=== PATIENT | male | born 1945 | race Caucasian/White ===

== ENCOUNTER 2021-11-28 23:02 | Inpatient (IN) | payer OTHER, MEDICARE, SELFPAY ==
[2021-11-28 23:03] VITALS: BP 119/77; PULSE 106; RESP 14; TEMP 36.8; O2SAT 92; BMI 26.6
--- NOTE | 2021-11-28 23:09 | ECG_ITS ---
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 Measurements Intervals [place] Rate: 105 P: 62 TN: 257 QRS: -39 QRSD: 150 T: 0 QT: 318 QTc: 421 Interpretive Statements SINUS TACHYCARDIA WITH FIRST DEGREE AV BLOCK WITH FREQUENT VENTRICULAR PREMATURE COMPLEXES LEFT AXIS DEVIATION [QRS AXIS < -30] RIGHT BUNDLE BRANCH BLOCK [120+ ms QRS DURATION, UPRIGHT V1, 40+ ms S IN I/aVL/V4/V5/V6] Compared to ECG 04/26/2017 12:52:22 Left-axis deviation now present Sinus rhythm no longer present Electronically Signed On 11-29-2021 15:01:14 CDT by Yodit Stanley M.D. [email or web address].[employer]/store/NU/[id number] f
--- NOTE | 2021-11-28 23:10 | XRR_ITS ---
PROCEDURE INFORMATION: Exam: XR Chest Exam date and time: 11/28/2021 11:12 PM Age: 76 years old Clinical indication: Patient HX: General weakness. TECHNIQUE: Imaging protocol: XR of the chest. Views: 1 view. COMPARISON: CR Chest 1 [place] [id number] 04/26/2017 1:13 PM FINDINGS: Lungs: There are some increased linear opacity seen in the right upper lobe adjacent to the minor fissure and some linear opacities are seen in the lung bases, findings that likely represents atelectasis. A patchy bilateral pneumonitis cannot be excluded. Pleural spaces: Patchy opacities are seen in the left costophrenic recess possibly represent a small left pleural effusion versus pleural thickening. Heart/Mediastinum: Unremarkable. No cardiomegaly. Bones/joints: Unremarkable. XR/XR chest 1V portable [id number] IMPRESSION: 1. Linear opacities present in the right upper lobe adjacent to the minor fissure and in the lung bases bilaterally may represent atelectasis although a patchy bilateral pneumonitis cannot be entirely excluded. 2. Blunting the left costophrenic recess possibly secondary to a small left pleural effusion versus pleural scarring.
--- NOTE | 2021-11-28 23:10 | CTR_ITS ---
PROCEDURE INFORMATION: Exam: CT Head Without Contrast Exam date and time: 11/28/2021 11:22 PM Age: 76 years old Clinical indication: Patient HX: C/O dizziness with nausea and worsening weakness since last Wednesday. ; Additional info: Dizzy TECHNIQUE: Imaging protocol: Computed tomography of the head without contrast. Radiation optimization: All CT scans at this facility use at least one of these dose optimization techniques: automated exposure control; mA and/or kV adjustment per patient size (includes targeted exams where dose is matched to clinical indication); or iterative reconstruction. COMPARISON: No relevant prior studies available. RADIATION DOSE METRICS: Total DLP (mGy-cm): 991.87 FINDINGS: Brain: Normal. No hemorrhage. Unremarkable white matter. No mass effect. Cerebral ventricles: No ventriculomegaly. Paranasal sinuses: There is virtual opacification of the maxillary sinuses bilaterally with mucosal thickening and fluid seen within the frontal, ethmoidal and sphenoidal sinuses bilaterally. The patient is status post bilateral maxillary medial wall antrectomies. Mastoid air cells: Visualized mastoid air cells are well aerated. Bones/joints: Unremarkable. No acute fracture. Soft tissues: Unremarkable. CT/CT head wo con* [id number] IMPRESSION: There are no acute intracranial findings.
--- NOTE | 2021-11-28 23:16 | ED_ITS ---
HPI - Dizziness General: Chief Complaint: Dizziness Stated Complaint: DIZZY Time Seen by Provider: 11/28/21 23:12 Source: patient and EMS Mode of arrival: EMS Limitations: no limitations History of Present Illness: HPI Narrative: 76-year-old male states he has had extreme dizziness over the last 2 days with a getting much worse today. He states that its been going on this morning since 10 AM states that with any movement he gets very dizzy and is having a hard time walking. He states that it does seem to be improved with rest. He had some generalized weakness as well EKG by EMS showed frequent PVCs. He denies any headache denies any focal deficits. Denies any vomiting has had some nausea. Patient states has had some low-grade fevers and a cough as well. Associated symptoms: Denies chest pain, chills, nausea or vomiting Review of Systems Const: Denies: fever(s), chills, body aches or change in appetite Eyes: Denies: blurry vision or eye discomfort ENMT: Denies: throat pain or dental pain Card: Denies: chest pain Resp: Denies: dyspnea GI: Denies: abdominal pain, nausea, vomiting or diarrhea : Denies: dysuria Musc: Denies: neck pain or back pain Skin/Breast: Denies: rash Neuro: Reports: dizziness Psych: Denies: depression Miguel/Lymph: Denies: easy bruising All/Imm: Denies: urticaria PFSH ED PFSH: Medical History No pertinent past medical history Social History (Updated 11/28/21 @ 23:17 by Angeli Walker MD) Substance/Drug Use: never Physical Exam Const: COMMON NORMALS: patient oriented x3 GENERAL APPEARANCE: ill appearing HENMT: COMMON NORMALS: normocephalic and atraumatic HEAD & SCALP: normocephalic and atraumatic Eye: COMMON NORMALS: Equal, round and reactive pupils present and EOMs intact bilaterally PUPIL: Yes Equal, round and reactive pupils present Neck/C-Spine: COMMON NORMALS: full ROM and supple Chest: COMMONS NORMALS: normal inspection of the chest and normal palpation of entire chest wall Resp: COMMON NORMALS: No retractions and No use of accessory muscles AUSCULTATION: rales Cardio: COMMON NORMALS: regular rate, regular rhythm and No murmurs present (Cardio) RATE: regular rate RHYTHM: regular rhythm GI: COMMON NORMALS: Normal to inspection, nondistended, normoactive bowel sounds present, Soft to palpation, non-tender and no masses PALPATION: Yes Soft to palpation Extremity: COMMON NORMALS: normal to inspection and full ROM Neuro: COMMON NORMALS: patient oriented x3, moves all extremities and no focal motor deficits Psych: COMMON NORMALS: mental status grossly normal, Normal thought process present and cooperative THOUGHT PROCESS: Normal thought process present Skin: COMMON NORMALS: no rashes or lesions noted and no wounds GENERAL SKIN EXAM: no rashes or lesions noted Course Vital Signs: Vital signs: Vital Signs Temperature 99.7 F H 11/29/21 01:07 Pulse Rate 95 11/29/21 01:07 Respiratory Rate 19 H 11/29/21 01:07 Blood Pressure 120/83 11/29/21 01:07 Pulse Oximetry 92 11/28/21 23:03 [facility] - Dizziness Medical Decision Making Patient presents with cough and vertigo. He has no signs of acute stroke his vertigo has been going on for couple days he is requiring oxygen currently is on 2 L does have pneumonia on x-ray start IV antibiotics spoke to hospitalist and will admit. Lab Data : 11/28/21 21:56 11/28/21 21:56 Radiology Impressions Chest X-Ray 11/28/21 23:10 IMPRESSION: 1. Linear opacities present in the right upper lobe adjacent to the minor fissure and in the lung bases bilaterally may represent atelectasis although a patchy bilateral pneumonitis cannot be entirely excluded. 2. Blunting the left costophrenic recess possibly secondary to a small left pleural effusion versus pleural scarring. Head CT 11/28/21 23:10 IMPRESSION: There are no acute intracranial findings. Laboratory Results WBC 11.2 10^3/uL (4.0-10.0) H 11/28/21 21:56 RBC 3.93 10^6/uL (4.1-5.3) L 11/28/21 21:56 Hgb 12.7 g/dL (11.7-16.6) 11/28/21 21:56 Hct 38.4 % (42.0-52.0) L 11/28/21 21:56 MCV 97.7 fl (80-94) H 11/28/21 21:56 MCH 32.3 pg (28.0-34.0) 11/28/21 21:56 MCHC 33.1 g/dL (30.0-36.0) 11/28/21 21:56 RDW 13.1 % (12.1-15.1) 11/28/21 21:56 Plt Count 169 10^3/cmm (130-400) 11/28/21 21:56 MPV 11.5 fL (7.4-10.4) H 11/28/21 21:56 Neut % (Auto) 84.3 % 11/28/21 21:56 Lymph % (Auto) 8.0 % 11/28/21 21:56 Rush % (Auto) 6.7 % 11/28/21 21:56 Eos % (Auto) 0.3 % 11/28/21 21:56 Baso % (Auto) 0.2 % 11/28/21 21:56 Neut # (Auto) 9.42 10^3/uL (1.8-7.7) H 11/28/21 21:56 Lymph # (Auto) 0.9 10^3/uL (0.8-4.8) 11/28/21 21:56 Rush # (Auto) 0.8 10^3/uL (0.2-0.9) 11/28/21 21:56 Eos # (Auto) 0.0 10^3/uL (0.0-0.8) 11/28/21 21:56 Baso # (Auto) 0.0 10^3/uL (0.0-0.1) 11/28/21 21:56 Nucleated RBC % (auto) 0 % 11/28/21 21:56 Nucleated RBCs # 0.0 /100WBC 11/28/21 21:56 Sodium 134 mmol/L (136-145) L 11/28/21 21:56 Potassium 3.6 mmol/L (3.5-5.1) 11/28/21 21:56 Chloride 100 mmol/L (98-107) 11/28/21 21:56 Carbon Dioxide 18 mmol/L (22-29) L 11/28/21 21:56 Anion Gap 19.6 (5-19) H 11/28/21 21:56 BUN 27 mg/dL (8-23) H 11/28/21 21:56 Creatinine 1.4 mg/dL (0.7-1.2) H 11/28/21 21:56 GFR Calculation Not Reportable 11/28/21 21:56 Glucose 113 mg/dL (65-115) 11/28/21 21:56 Calculated Osmolality 284 mOsm/kg (285-295) L 11/28/21 21:56 Calcium 9.1 mg/dL (8.5-10.5) 11/28/21 21:56 Total Bilirubin 0.7 mg/dL (0.15-1.2) 11/28/21 21:56 AST 12 U/L (0-40) 11/28/21 21:56 ALT 8 U/L (0-41) 11/28/21 21:56 Alkaline Phosphatase 58 IU/L (40-130) 11/28/21 21:56 Troponin T Baseline 32 ng/L (0-15) H 11/28/21 21:56 Total Protein 6.5 g/dL (6.6-8.7) L 11/28/21 21:56 Albumin 4.1 g/dL (3.5-5.2) 11/28/21 21:56 Globulin 2.4 g/dL (1.3-4.6) 11/28/21 21:56 Urine Color Yellow (Yellow) 11/29/21 00:56 Urine Appearance Clear (CLEAR) 11/29/21 00:56 Urine pH 5 (5-7) 11/29/21 00:56 Ur Specific [place] 1.020 (1.005-1.030) 11/29/21 00:56 Urine Protein Neg (Negative) 11/29/21 00:56 Urine Glucose (UA) Norm (Normal) 11/29/21 00:56 Urine Ketones 1+ (Negative) H 11/29/21 00:56 Urine Blood 2+ (Negative) H 11/29/21 00:56 Urine Nitrate Negative (Negative) 11/29/21 00:56 Urine Bilirubin Neg (Negative) 11/29/21 00:56 Urine Urobilinogen Norm mg/dL (Negative) 11/29/21 00:56 Ur Leukocyte Esterase Negative (Negative) 11/29/21 00:56 Urine RBC 25-40 /hpf (0-2) H 11/29/21 00:56 Urine WBC 0-4 /hpf (0-5) H 11/29/21 00:56 Ur Squamous Epith Cells 0-4 /hpf (0-5) H 11/29/21 00:56 Amorphous Sediment 1+ /hpf 11/29/21 00:56 Urine Bacteria 2+ /hpf (NONE) H 11/29/21 00:56 Hyaline Casts 0-4 /lpf H 11/29/21 00:56 Urine Mucus 2+ /hpf 11/29/21 00:56 Influenza Type A Ag Negative (Negative) 11/29/21 00:42 Influenza Type B Ag Negative (Negative) 11/29/21 00:42 EKG Data EKG 1: I personally reviewed and interpreted this EKG as follows: EKG interpretation date: 11/28/21 EKG interpretation time: 23:12 Interpretation: sinus tach hr [address] elevation qrs 150 qtc 379 EKG 2: I personally reviewed and interpreted this EKG as follows: EKG interpretation date: 11/29/21 EKG interpretation time: 01:01 Interpretation: sinus tach hr [address] or t wave abnormalities qrs 138 qtc 375 Critical Care Time Critical Care Time: Critical Care Time: Yes Total Critical Care Time: 40 Attestation: The high probability of a clinically significant, sudden or life threatening deterioration of the patient's pul system(s) required my full and direct attention, intervention and personal management. The critical care time is as shown. This time is in addition to time spent performing any reported procedures but includes the following: [x] Data and vital sign review and interpretation [x] Patient assessment, examination and intervention [x] Documentation [x] Medication orders and management Discharge Plan Discharge Patient Disposition: Admitted As Inpatient Clinical Impression: Pneumonia, Dizziness, Acute respiratory failure with hypoxia Coding Level of Care Code ED Vest Finisher for Chg Fwd Exam Comprehensive
[2021-11-28 23:17] LABS: Basophils % 0.2 %; Eosinophils % 0.3 %; Hematocrit 38.4 % (42.0-52.0); Hemoglobin 12.7 g/dL (11.7-16.6); Lymphocytes # 0.9 10^3/uL (0.8-4.8); Mean Corpuscular HGB Conc 33.1 g/dL (30.0-36.0); Mean Corpuscular Hemoglobin 32.3 pg (28.0-34.0); Mean Corpuscular Volume 97.7 fl (80-94); Mean Platelet Volume 11.5 fL (7.4-10.4); Monocytes # 0.8 10^3/uL (0.2-0.9); Monocytes % 6.7 %; Neutrophils # 9.42 10^3/uL (1.8-7.7); Neutrophils % 84.3 %; Nucleated Red Blood Cells % 0 %; Platelet Count 169 10^3/cmm (130-400); Red Blood Count 3.93 10^6/uL (4.1-5.3); Red Cell Distribution Width 13.1 % (12.1-15.1); White Blood Count 11.2 10^3/uL (4.0-10.0)
[2021-11-28 23:40] LABS: Troponin(5th) Baseline 32 ng/L (0-15)
[2021-11-28 23:41] LABS: Alanine Aminotransferase 8 U/L (0-41); Albumin Level 4.1 g/dL (3.5-5.2); Alkaline Phosphatase 58 IU/L (40-130); Anion Gap 19.6 (5-19); Aspartate Amino Transferase 12 U/L (0-40); Blood Urea Nitrogen 27 mg/dL (8-23); Calcium 9.1 mg/dL (8.5-10.5); Carbon Dioxide 18 mmol/L (22-29); Chloride 100 mmol/L (98-107); Globulin 2.4 g/dL (1.3-4.6); Glucose 113 mg/dL (65-115); Osmolality Calculated 284 mOsm/kg (285-295); Potassium 3.6 mmol/L (3.5-5.1); Sodium 134 mmol/L (136-145); Total Bilirubin 0.7 mg/dL (0.15-1.2); Total Protein 6.5 g/dL (6.6-8.7)
[2021-11-29] VITALS (17 sets, daily range): BP systolic 86–120; BP diastolic 49–83; PULSE 43–113; RESP 16–36; TEMP 36.7–37.9; O2SAT 90–95; BMI 27.4
[2021-11-29] MEDS: meclizine 25 mg tablet 50 MG PO (01:06)
--- NOTE | 2021-11-29 01:09 | ECG_ITS ---
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 Measurements Intervals [place] Rate: 103 P: 37 [place]: 266 QRS: -43 QRSD: 138 T: 0 QT: 315 QTc: 413 Interpretive Statements SINUS TACHYCARDIA WITH FIRST DEGREE AV BLOCK WITH OCCASIONAL VENTRICULAR PREMATURE COMPLEXES LEFT AXIS DEVIATION [QRS AXIS < -30] RIGHT BUNDLE BRANCH BLOCK [120+ ms QRS DURATION, UPRIGHT V1, 40+ ms S IN I/aVL/V4/V5/V6] WARNING: DATA QUALITY MAY AFFECT INTERPRETATION Compared to ECG 04/26/2017 12:52:22 Ventricular premature complex(es) now present Left-axis deviation now present Sinus rhythm no longer present Electronically Signed On 11-29-2021 15:13:04 CDT by Yodit Stanley M.D. [email or web address]/[id number]
[2021-11-29 01:20] LABS: Add Urine Microscopic? YES; Bilirubin Urine Neg (Negative); Blood Urine 2+ (Negative); Glucose Urine UA Norm (Normal); Ketones Urine 1+ (Negative); Leukocyte Esterase Urine Negative (Negative); Nitrate Urine Negative (Negative); Protein Urine Neg (Negative); Urine Appearance Clear (CLEAR); Urine Color Yellow (Yellow); Urobilinogen Urine Norm (Negative); pH Urine 5 (5-7)
[2021-11-29 01:22] LABS: Add Urine Culture? Yes; Amorphous Sediment Urine 1+ /hpf; Bacteria Urine 2+ /hpf; Hyaline Casts Urine 0-4 /lpf; Mucus Urine 2+ /hpf; RBC Urine 25-40 /hpf (0-2); Squamous Epithelial Cell Urine 0-4 /hpf (0-5); WBC Urine 0-4 /hpf (0-5)
[2021-11-29 01:23] LABS: Influenza A by IFA Negative (Negative); Influenza B by IFA Negative (Negative)
[2021-11-29] MEDS: acetaminophen 500 mg Tablet 1000 MG PO (01:28)
[2021-11-29] MEDS: cefTRIAXone 1,000 MG in sodium chloride 0.9% (plus) 50 ML 100 MG IV (01:30)
--- NOTE | 2021-11-29 01:48 | PM.HP ---
Providers/Chief Complaint Chief Complaint: DIZZY History of Present Illness The patient is a 76-year-old male who presented to [facility] nausea and dizziness. He states he started feeling unwell approximate 5 days prior to hospitalization. He admits to onset of low-grade fever, rigors, nausea, cough however upon further questioning he states that his cough is chronic however it is now productive of yellow sputum as well as diarrhea into his ostomy. He denies vomiting, wheeze, abdominal pain, myalgia, chest pain. He denies referral edema. In the emergency department the patient was found to be hypoxemic. He presents for further evaluation Review of Systems General: Reports: 10 or more systems reviewed and unremarkable except in HPI and below Medications/Allergies Allergies Allergy/AdvReac Type Severity Reaction Status Date / Time codeine Allergy ADR-Halluci Verified 11/28/21 23:13 nating morphine Allergy ADR-Halluci Verified 11/28/21 23:13 nating PFSH Acute PFSH: Medical History No pertinent past medical history Social History Substance/Drug Use: never Vitals/I&O/Wt Last Vital Signs Temp 99.7 F H 11/29/21 01:07 Pulse 95 11/29/21 01:07 Resp 19 H 11/29/21 01:07 BP 120/83 11/29/21 01:07 Pulse Ox 92 11/28/21 23:03 Weight last 48 hrs Weight 79.379 kg Physical Exam Narrative: General: -Alert -No acute distress -No dyspnea -No tachypnea Head: -Atraumatic -Normocephalic Eyes: -Pupils equally round and reactive to light and accommodation -Extraocular muscles intact Neurological: -Cranial nerves II-XII intact Neck: -No jugular venous distention -No thyromegaly -No cervical lymphadenopathy Heart: -Regular rate -Regular rhythm -No murmurs -No gallops -No rubs Lungs: -No wheeze -No rhonchi -No rales ? Abdomen: -Normal bowel sounds in all four quadrants -No rebound -No guarding -No tenderness Extremities: -2/4 pulse in all four extremities -No clubbing -No cyanosis -No edema -No calf tenderness present bilaterally -Negative More?s sign bilaterally Musculoskeletal: -5/5 bilateral upper extremity strength -5/5 bilateral lower extremity strength -Sensorium of bilateral upper extremities are equal and intact -Sensorium of bilateral lower extremities are equal and intact ? Additional Details / Additional Findings / Exceptions / Miscellaneous: Data : 11/28/21 21:56 11/28/21 21:56 Micro: Microbiology 11/29/21 01:35 Blood Culture - Preliminary Blood SPECIMEN COLLECTED 11/29/21 01:28 Blood Culture - Preliminary Blood SPECIMEN COLLECTED A&P Assessment and plan (1) Pneumonia: Status: Acute Plan Pneumonia. A cephamycin 500 Mill grams IV daily plus Rocephin 1 g IV daily plus DuoNeb every 6 hours Dizziness. I suspect this may be secondary to dehydration and/or benign paroxysmal positional vertigo. Patient exhibits no neurological deficits and CT of the head is negative. Neurological checks every 4 hours. Microscopic hematuria. Outpatient follow-up with urology upon discharge Acute renal insufficiency. Will monitor creatinine intermittently. IV normal saline at 75 ML's per hour Elevated troponin. Query false elevation due to acute renal insufficiency. Patient provides no symptoms of ACS. Will monitor patient on telemetry and checks her cardiac enzymes. Recheck EKG on the morning of November 29, 2021 Ulcerative colitis, status post total colectomy and partial small bowel resection Macrocytosis. TSH, free T4, B12, folate level pending DVT prophylaxis. Heparin 5000 units subcu tensely every 12 hours Attestations Medical Necessity Statement*: The patient's anticipated length of stay is greater than 2 midnights for treatment of his pneumonia with resultant hypoxemia Coding Level of Care Code Acute Temporary Office Assistant for Virgilio Montano Diagnoses Pneumonia J18.9
[2021-11-29 01:55] LABS: SARS Covid-2 Antigen Negative (Negative)
[2021-11-29 02:02] LABS: Troponin 5 2HR 27.86 ng/L (0-15)
[2021-11-29] MEDS: azithromycin 500 MG in sodium chloride 0.9% 250 ML 250 MG IV (02:16)
[2021-11-29 02:28] LABS: Troponin 5 2HR Delta -4.14 ABS# (0-10)
[2021-11-29 02:30] LABS: Thyroid Stimulating Hormone 1.88 uIU/mL (0.27-4.20)
[2021-11-29 03:15] LABS: Free T4 Free Thyroxine 1.09 ng/dL (0.82-1.77)
[2021-11-29 03:19] LABS: Folate Level > 20.0 ng/mL (4.5-32.2)
[2021-11-29 03:20] LABS: Vitamin B12 > 2000 pg/mL (232-1245)
[2021-11-29] MEDS: heparin 5,000 unit/mL INJ 1 mL 5000 UNIT SUBCUT ×2 (03:39→16:36)
[2021-11-29] MEDS: sodium chloride 0.9% 1,000 ML 75 ML IV ×2 (03:40→21:38)
--- NOTE | 2021-11-29 05:09 | ECG_ITS ---
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 Measurements Intervals [place] Rate: 88 P: 62 [place]: 276 QRS: -23 QRSD: 154 T: 0 QT: 345 QTc: 418 Interpretive Statements SINUS RHYTHM WITH FIRST DEGREE AV BLOCK WITH FREQUENT VENTRICULAR PREMATURE COMPLEXES BORDERLINE LEFT AXIS DEVIATION [QRS AXIS < -20] RIGHT BUNDLE BRANCH BLOCK [120+ ms QRS DURATION, UPRIGHT V1, 40+ ms S IN I/aVL/V4/V5/V6] Compared to ECG 11/29/2021 01:01:08 Sinus tachycardia no longer present Electronically Signed On 11-29-2021 15:08:48 CDT by Yodit Stanley M.D. [id number]
[2021-11-29 06:01] LABS: Troponin 5 6HR 32.91 ng/L (0-15)
[2021-11-29 06:05] LABS: Troponin 5 6HR Delta 0.91 ng/L (0-12)
[2021-11-29] MEDS: ipratropium-albuterol 3 mL Neb INHALATION ×2 (08:16→11:52)
--- NOTE | 2021-11-29 11:02 | PM.MISC ---
Miscellaneous Note Purpose of Documentation: Progress note Note: Seen in room 275 this morning. Patient states that he feels well but is currently on 2 L of oxygen. He does not wear oxygen at home. Blood pressure on soft side today. Patient states he does have low blood pressure at baseline and the highest ever he got was 110/70. He does not really check his blood pressure at home otherwise. Patient takes tamsulosin at home and states he has a lot of trouble with BPH. He does endorse having a cough since past few days. He does have chronic yellowish sputum production. He has been having rigors and has been febrile with low-grade fever at home. Lungs are clear to auscultation. We will continue ceftriaxone and azithromycin. I will check MRSA nares. We will hold off on tamsulosin for now due to softer blood pressure. I will give normal saline 500 cc bolus. Continue on IV fluids. Await sputum culture and gram stain, await urine culture results. Patient goes to [place] for his [facility] and has been told in the past that he has low blood pressure. Anticipate greater than 48-hour in hospital stay
[2021-11-29] MEDS: sodium chloride 0.9% 500 ML 999 ML IV (13:02)
--- NOTE | 2021-11-29 13:12 | USCV_ITS ---
Vern Calix Age: 76 Gender: M : 1945 Exam Date: 11/29/2021 14:09 Ordering Phys: Massiel Patterson MD Technologist: Jonn Huerta Exam Location: [facility] [place] Indication: Abnormal ekg BP: 132 / 74 HR: 100 Rhythm: Sinus Technical Quality: Adequate MEASUREMENTS (Male / Female) Normal Values 2D ECHO LV Diastolic Diameter PLAX 4.2 cm 4.2 - 5.9 / 3.9 - 5.3 cm LV Systolic Diameter PLAX 2.8 cm IVS Diastolic Thickness 1.1 cm 0.6 - 1.0 / 0.6 - 0.9 cm IVS Systolic Thickness 1.6 cm LVPW Diastolic Thickness 1.0 cm 0.6 - 1.0 / 0.6 - 0.9 cm LVPW Systolic Thickness 1.5 cm LVOT Diameter 2.1 cm LV Ejection Fraction 2D Teich 62.0 % LV Ejection Fraction MOD 2C 68.6 % LV Ejection Fraction 2C AL 67.4 % LA Diameter 3.8 cm Aorta at Sinotubular Diameter 3.0 cm M-MODE LV Diastolic Diameter MM 5.5 cm 4.2 - 5.9 / 3.9 - 5.3 cm LV Systolic Diameter MM 3.3 cm LV Ejection Fraction MM Teich 69.3 % IVS Diastolic Thickness MM 1.3 cm 0.6 - 1.0 / 0.6 - 0.9 cm IVS Systolic Thickness MM 1.5 cm LVPW Diastolic Thickness MM 1.2 cm 0.6 - 1.0 / 0.6 - 0.9 cm LVPW Systolic Thickness MM 1.7 cm RV Diastolic Diameter MM 2.1 cm Aortic Annulus Diameter 3.1 cm LA Ao Ratio MM 1.2 MV E Point Septal Separation 0.8 cm DOPPLER AV Peak Velocity 133.0 cm/s LVOT Peak Velocity 88.0 cm/s AV Area Cont Eq vti 2.3 cm squared AV Area Cont Eq pk 2.3 cm squared MV Area PHT 5.0 cm squared Mitral E to A Ratio 0.8 MV E' Velocity 40.0 cm/s Mitral E to MV E' Ratio 4.9 Mitral E to LV E' Lateral Ratio 5.0 Mitral E to LV E' Septal Ratio 4.8 TR Peak Velocity 250.5 cm/s TR Peak Gradient 25.1 mmHg TV Peak E Velocity 81.0 cm/s Right Atrial Pressure 3.0 mmHg Pulmonary Artery Systolic Pressu 28.1 mmHg PV Peak Velocity 80.0 cm/s FINDINGS Left Ventricle Normal left ventricular size, systolic function and wall thickness, with no regional wall motion abnormalities. Left ventricular ejection fraction is estimated at 65 %. Normal diastolic function. Right Ventricle Normal right ventricular size and systolic function. Right ventricular systolic pressure 26 mmHg. Right Atrium Upper normal right atrial size. Left Atrium Upper normal left atrial size. Mitral Valve Structurally normal mitral valve. No mitral valve stenosis. Mild mitral valve regurgitation. Aortic Valve Structurally normal trileaflet aortic valve. No aortic valve stenosis. Trace to mild aortic valve regurgitation. Tricuspid Valve Structurally normal tricuspid valve. No tricuspid valve stenosis. Mild tricuspid valve regurgitation. Pulmonic Valve Structurally normal pulmonic valve. No pulmonary valve stenosis. Mild pulmonary valve regurgitation. Pericardium No pericardial effusion. Aorta Normal size aortic root and proximal ascending aorta. CONCLUSIONS 1. Normal left ventricular size, systolic function and wall thickness, with no regional wall motion abnormalities. Left ventricular ejection fraction is estimated at 65 %. Normal diastolic function. 2. Pulmonary artery pressure estimated at 26 mm Hg. 3. Mild mitral and tricuspid valve regurgitation. 4. Trace to mild aortic valve regurgitation. 5. No prior similar studies to compare. Yodit Stanley MD (Electronically Signed) Final Date: 30 November 2021 07:27 S
[2021-11-29] MEDS: hydrocortisone 100 mg/2 mL SDV 50 MG IVP (19:14)
[2021-11-29] MEDS: pantoprazole DR 40 mg Tablet PO (20:04)
[2021-11-30] VITALS (9 sets, daily range): BP systolic 94–110; BP diastolic 55–64; PULSE 62–74; RESP 16–18; TEMP 36.4–37; O2SAT 94–99
[2021-11-30] MEDS: heparin 5,000 unit/mL INJ 1 mL 5000 UNIT SUBCUT (02:02)
[2021-11-30] MEDS: cefTRIAXone 1,000 MG in sodium chloride 0.9% (plus) 50 ML 100 MG IV (02:08)
[2021-11-30] MEDS: azithromycin 500 MG in sodium chloride 0.9% 250 ML 250 MG IV (02:23)
[2021-11-30 05:31] LABS: Basophils % 0.3 %; Eosinophils # 0.1 10^3/uL (0.0-0.8); Eosinophils % 1.1 %; Hematocrit 32.7 % (42.0-52.0); Hemoglobin 10.3 g/dL (11.7-16.6); Lymphocytes # 0.9 10^3/uL (0.8-4.8); Lymphocytes % 9.5 %; Mean Corpuscular HGB Conc 31.5 g/dL (30.0-36.0); Mean Corpuscular Hemoglobin 32.3 pg (28.0-34.0); Mean Corpuscular Volume 102.5 fl (80-94); Mean Platelet Volume 10.9 fL (7.4-10.4); Monocytes # 0.5 10^3/uL (0.2-0.9); Monocytes % 5.3 %; Neutrophils # 7.74 10^3/uL (1.8-7.7); Neutrophils % 83.2 %; Nucleated Red Blood Cells % 0 %; Platelet Count 150 10^3/cmm (130-400); Red Blood Count 3.19 10^6/uL (4.1-5.3); Red Cell Distribution Width 13.3 % (12.1-15.1); White Blood Count 9.3 10^3/uL (4.0-10.0)
[2021-11-30 05:51] LABS: Anion Gap 14.9 (5-19); Blood Urea Nitrogen 26 mg/dL (8-23); Calcium 8.5 mg/dL (8.5-10.5); Carbon Dioxide 18 mmol/L (22-29); Chloride 109 mmol/L (98-107); Glucose 164 mg/dL (65-115); Osmolality Calculated 294 mOsm/kg (285-295); Potassium 3.9 mmol/L (3.5-5.1); Sodium 138 mmol/L (136-145)
[2021-11-30] MEDS: ipratropium-albuterol 3 mL Neb INHALATION ×2 (07:24→11:24)
[2021-11-30] MEDS: allopurinol 300 mg Tablet PO (07:57)
[2021-11-30] MEDS: levothyroxine 25 mcg Tablet PO (07:57)
[2021-11-30] MEDS: tamsulosin 0.4 mg Capsule PO (10:39)
--- NOTE | 2021-11-30 12:23 | P.DS_ITS ---
Discharge Providers Date of Admission: 11/29/21 01:57 Date of Discharge: November 30, 2021 Attending Provider at Admission: Refugio De Paz DO Attending Provider at Discharge: Massiel Patterson MD Diagnoses at Discharge Discharge Diagnosis (1) Pneumonia: Status: Acute Reason for Visit Reason for Visit: DIZZY Brief History: As per The patient is a 76-year-old male who presented to [facility] nausea and dizziness.? He states he started feeling unwell approximate 5 days prior to hospitalization.? He admits to onset of low-grade fever, rigors, nausea, cough however upon further questioning he states that his cough is chronic however it is now productive of yellow sputum as well as diarrhea into his ostomy.? He denies vomiting, wheeze, abdominal pain, myalgia, chest pain.? He denies referral edema.? In the emergency department the patient was found to be hypoxemic.? He presents for further evaluation Hospital Course Hospital Course Patient presented with nausea and dizziness. He also reported low-grade fever rigors nausea and cough. Dehydration was suspected patient was given IV fluids. Patient also takes testosterone topically daily. Blood pressure remained on the lower side day 1 hospital stay but patient reported that that is his usual. Patient was given 500 cc normal saline bolus along with 1 dose of hydrocortisone 50 IV. Patient brought in his testosterone from home which was ordered for him. Blood pressure was better day 2. Initially requiring 2 L of oxygen patient was down to room air. Blood culture negative to date, urine culture negative, MRSA nares negative. WBC count resolved to normal. Creatinine improved to 1.3. Patient was treated for pneumonia. He was given IV ceftriaxone and azithromycin. Patient improved significantly day 2 of admission and had no further complaints. Lungs were clear to auscultation. He felt back to baseline. present at bedside. All questions answered to patient satisfaction. Patient will be discharged home in stable condition. There are no concerns from his ostomy site at this time either. Patient will be following up at the [facility] within 1 week of discharge with his primary care physician. He will be sent home on cefdinir and azithromycin to complete 7 days. Physical Exam Narrative: General: Alert oriented x3, patient seen sitting up in bed appearing energetic and comfortable, on room air. HEENT: Normocephalic, atraumatic, EOMI, breathing room air Cardio: Regular rate rhythm, normal S1-S2, no murmurs Respiratory: Good bilateral air entry, no wheezes no rhonchi appreciated GI: Abdomen soft, nontender, nondistended, bowel sounds +, has an ostomy. Behavior: Appropriate and cooperative Extremities: no edema, no cyanosis Discharge Data Studies Completed and Pending Completed Studies During Hospitalization Category Date Time Status CT head wo con* [id number] Urgent Cat Scan 11/28/21 23:10 Completed XR chest 1V portable [id number] Stat Exams 11/28/21 23:10 Completed CV. echo complete* [id number] Urgent Ultrasound 11/29/21 13:12 Completed Pending at discharge Category Date Time Status Blood Culture Stat Lab 11/29/21 01:35 Results Sputum Culture and Gram Stain Stat Lab 11/29/21 13:07 Uncollected Urine Culture Stat Lab 11/29/21 00:56 Results Radiology Impressions Chest X-Ray 11/28/21 23:10 IMPRESSION: 1. Linear opacities present in the right upper lobe adjacent to the minor fissure and in the lung bases bilaterally may represent atelectasis although a patchy bilateral pneumonitis cannot be entirely excluded. 2. Blunting the left costophrenic recess possibly secondary to a small left pleural effusion versus pleural scarring. Head CT 11/28/21 23:10 IMPRESSION: There are no acute intracranial findings. Laboratory Results WBC 9.3 10^3/uL (4.0-10.0) 11/30/21 04:50 RBC 3.19 10^6/uL (4.1-5.3) L 11/30/21 04:50 Hgb 10.3 g/dL (11.7-16.6) L 11/30/21 04:50 Hct 32.7 % (42.0-52.0) L 11/30/21 04:50 MCV 102.5 fl (80-94) H 11/30/21 04:50 MCH 32.3 pg (28.0-34.0) 11/30/21 04:50 MCHC 31.5 g/dL (30.0-36.0) 11/30/21 04:50 RDW 13.3 % (12.1-15.1) 11/30/21 04:50 Plt Count 150 10^3/cmm (130-400) 11/30/21 04:50 MPV 10.9 fL (7.4-10.4) H 11/30/21 04:50 Neut % (Auto) 83.2 % 11/30/21 04:50 Lymph % (Auto) 9.5 % 11/30/21 04:50 [place] % (Auto) 5.3 % 11/30/21 04:50 Eos % (Auto) 1.1 % 11/30/21 04:50 Baso % (Auto) 0.3 % 11/30/21 04:50 Neut # (Auto) 7.74 10^3/uL (1.8-7.7) H 11/30/21 04:50 Lymph # (Auto) 0.9 10^3/uL (0.8-4.8) 11/30/21 04:50 [place] # (Auto) 0.5 10^3/uL (0.2-0.9) 11/30/21 04:50 Eos # (Auto) 0.1 10^3/uL (0.0-0.8) 11/30/21 04:50 Baso # (Auto) 0.0 10^3/uL (0.0-0.1) 11/30/21 04:50 Nucleated RBC % (auto) 0 % 11/30/21 04:50 Nucleated RBCs # 0.0 /100WBC 11/30/21 04:50 Sodium 138 mmol/L (136-145) 11/30/21 04:50 Potassium 3.9 mmol/L (3.5-5.1) 11/30/21 04:50 Chloride 109 mmol/L (98-107) H 11/30/21 04:50 Carbon Dioxide 18 mmol/L (22-29) L 11/30/21 04:50 Anion Gap 14.9 (5-19) 11/30/21 04:50 BUN 26 mg/dL (8-23) H 11/30/21 04:50 Creatinine 1.3 mg/dL (0.7-1.2) H 11/30/21 04:50 GFR Calculation Not Reportable 11/30/21 04:50 Glucose 164 mg/dL (65-115) H 11/30/21 04:50 Calculated Osmolality 294 mOsm/kg (285-295) 11/30/21 04:50 Calcium 8.5 mg/dL (8.5-10.5) 11/30/21 04:50 Total Bilirubin 0.7 mg/dL (0.15-1.2) 11/28/21 21:56 AST 12 U/L (0-40) 11/28/21 21:56 ALT 8 U/L (0-41) 11/28/21 21:56 Alkaline Phosphatase 58 IU/L (40-130) 11/28/21 21:56 Troponin T Baseline 32 ng/L (0-15) H 11/28/21 21:56 Troponin T 120 Minute 27.86 ng/L (0-15) H 11/29/21 01:28 Delta Troponin T -4.14 ABS# (0-10) L 11/29/21 01:28 Troponin T Hi Sens 6Hr 32.91 ng/L (0-15) H 11/29/21 05:10 Troponin T Hi Sens 6Hr Delta 0.91 ng/L (0-12) 11/29/21 05:10 Total Protein 6.5 g/dL (6.6-8.7) L 11/28/21 21:56 Albumin 4.1 g/dL (3.5-5.2) 11/28/21 21:56 Globulin 2.4 g/dL (1.3-4.6) 11/28/21 21:56 Vitamin B12 > 2000 pg/mL (232-1245) H 11/28/21 21:56 Folate > 20.0 ng/mL (4.5-32.2) 11/28/21 21:56 TSH 1.88 uIU/mL (0.27-4.20) 11/28/21 21:56 Free T4 1.09 ng/dL (0.82-1.77) 11/28/21 21:56 Urine Color Yellow (Yellow) 11/29/21 00:56 Urine Appearance Clear (CLEAR) 11/29/21 00:56 Urine pH 5 (5-7) 11/29/21 00:56 Ur Specific [place] 1.020 (1.005-1.030) 11/29/21 00:56 Urine Protein Neg (Negative) 11/29/21 00:56 Urine Glucose (UA) Norm (Normal) 11/29/21 00:56 Urine Ketones 1+ (Negative) H 11/29/21 00:56 Urine Blood 2+ (Negative) H 11/29/21 00:56 Urine Nitrate Negative (Negative) 11/29/21 00:56 Urine Bilirubin Neg (Negative) 11/29/21 00:56 Urine Urobilinogen Norm mg/dL (Negative) 11/29/21 00:56 Ur Leukocyte Esterase Negative (Negative) 11/29/21 00:56 Urine RBC 25-40 /hpf (0-2) H 11/29/21 00:56 Urine WBC 0-4 /hpf (0-5) H 11/29/21 00:56 Ur Squamous Epith Cells 0-4 /hpf (0-5) H 11/29/21 00:56 Amorphous Sediment 1+ /hpf 11/29/21 00:56 Urine Bacteria 2+ /hpf (NONE) H 11/29/21 00:56 Hyaline Casts 0-4 /lpf H 11/29/21 00:56 Urine Mucus 2+ /hpf 11/29/21 00:56 Influenza Type A Ag Negative (Negative) 11/29/21 00:42 Influenza Type B Ag Negative (Negative) 11/29/21 00:42 SARS-CoV-2 Ag (Rapid) Negative (Negative) 11/29/21 01:25 Vitals Last Vital Signs Temp 97.6 F 11/30/21 07:21 Pulse 68 11/30/21 11:32 Resp 16 11/30/21 11:26 BP 110/64 11/30/21 07:21 Pulse Ox 96 11/30/21 11:26 Discharge Plan Discharge Patient Disposition: Home Condition: Stable Prescriptions: New cefdinir 300 mg capsule 300 mg PO BID 6 Days Qty: 12 0RF azithromycin 500 mg tablet 500 mg PO DAILY 6 Days Qty: 6 0RF Continued multivitamin Tablet 1 tab PO DAILY 0RF levothyroxine 25 mcg Tablet 25 mcg PO DAILY 0RF garlic 1,000 mg Capsule 1,000 mg PO DAILY 0RF tamsulosin 0.4 mg Capsule 0.4 mg PO DAILY 0RF omeprazole 20 mg Capsule,Delayed Release(Dr/Ec) 20 mg PO BEDTIME 0RF allopurinol 300 mg Tablet 300 mg PO DAILY 0RF gabapentin 100 mg Capsule 100 mg PO TID 0RF cholecalciferol (vitamin D3) 50 mcg (2,000 unit) Tablet 50 mcg PO DAILY 0RF Fish Oil 1,000 mg (120 mg-180 mg) Capsule 1 cap PO DAILY 0RF testosterone 1.62 % (20.25 mg/1.25 gram) Gel In Packet 40.5 mg topical DAILY 0RF cyanocobalamin (vitamin B-12) 1,000 mcg/mL Kit 1,000 mcg IM Q7D 0RF Discharge Orders: Discharge Order (Routine); Ordered 11/30/21 Ordered By: Massiel Patterson Other Ambulatory Orders: Basic Metabolic Panel (Routine) Timeframe: 3 Days Facility: [facility] - Location: Lab - Main Lab Ordered By: Massiel Patterson Referrals: REFUGIO JAIN, [Family Provider] - 4-7 days (Follow up with PCP) Discharge Diet: Regular Discharge Activity: Increase activity as tolerated Patient Instructions: Opioid Safety Activity Restrictions/Additional Instructions: Please follow up with your pcp within 4-7 days of discharge Discharge Attestations Time Spent in Discharge Care*: greater than 30 min Quality Metrics Clinical Quality Measures [ No reported AMI, CVA or VTE this stay] Coding Level of Care Code Acute Chg FW NYLA note Diagnoses Pneumonia J18.9
[2021-11-30] MEDS: sodium chloride 0.9% 500 ML 999 ML IV (12:58)
--- NOTE | 2021-11-30 14:02 | PC.NURSE ---
patient and verbalized understanding of discharge instructions, home medications, and follow up appointments.
== END 2021-11-30 14:04 | disposition home or self-care (01) | DRG 194 ==
LOC: ER 11-29 01:24 → MEDSURG 11-29 01:59
PROVIDERS: Nurse Practitioner Family; Admitting Provider Internal Medicine; Emergency Provider Emergency Medicine; Visit Provider Internal Medicine
DX: J18.9 Pneumonia, unspecified organism (principal); K51.90 Ulcerative colitis, unspecified, without complications; E86.0 Dehydration; R03.1 Nonspecific low blood-pressure reading; R31.29 Other microscopic hematuria; N28.9 Disorder of kidney and ureter, unspecified; D75.89 Other specified diseases of blood and blood-forming organs; N40.0 Benign prostatic hyperplasia without lower urinary tract symptoms; Z90.49 Acquired absence of other specified parts of digestive tract; Z93.3 Colostomy status
CPT/HCPCS: 36415; 70450; 71045; 80048; 80053; 81001; 82607; 82746; 84439; 84443; 84484; 85025; 87040; 87086; 87426; 87641; 87804; 93005; 93306; 94640; 94664; 96365; 96367; 96372; 97110; 97161; 99285; J0456; J0696; J1644; J1720; J7030; J7040; J7050; J8597

== ENCOUNTER 2022-02-27 21:53 | Observation (INO) | payer OTHER, SELFPAY ==
[2022-02-27 22:03] VITALS: BP 112/79; PULSE 75; RESP 18; TEMP 36.2; O2SAT 99; BMI 25.2
--- NOTE | 2022-02-27 22:43 | XRR_ITS ---
PROCEDURE INFORMATION: Exam: XR Chest Exam date and time: 02/27/2022 10:55 PM Age: 76 years old Clinical indication: Other: Dizziness; Weakness; Additional info: Dizziness, weakness TECHNIQUE: Imaging protocol: Radiologic exam of the chest. Views: 1 view. COMPARISON: CR XR chest 1V portable [id number] 11/28/2021 11:12 PM FINDINGS: Lungs: Unremarkable. No consolidation. Pleural spaces: Unremarkable. No pleural effusion. No pneumothorax. Heart/Mediastinum: Unremarkable. No cardiomegaly. Bones/joints: Unremarkable. XR/XR chest 1V portable [id number] IMPRESSION: No acute findings.
--- NOTE | 2022-02-27 22:43 | CTR_ITS ---
PROCEDURE INFORMATION: Exam: CT Head Without Contrast Exam date and time: 02/27/2022 11:07 PM Age: 76 years old Clinical indication: Patient HX: C/O worsening dizziness and weakness x weeks TECHNIQUE: Imaging protocol: Computed tomography of the head without contrast. Radiation optimization: All CT scans at this facility use at least one of these dose optimization techniques: automated exposure control; mA and/or kV adjustment per patient size (includes targeted exams where dose is matched to clinical indication); or iterative reconstruction. COMPARISON: CT head wo con* [id number] 11/28/2021 11:22 PM RADIATION DOSE METRICS: Total DLP (mGy-cm): 1240.4 FINDINGS: Brain: Normal. No hemorrhage. Unremarkable white matter. No mass effect. Cerebral ventricles: No ventriculomegaly. Paranasal sinuses: Paranasal sinus opacifications. Mastoid air cells: Visualized mastoid air cells are well aerated. Bones/joints: Unremarkable. No acute fracture. Soft tissues: Unremarkable. CT/CT head wo con* [id number] IMPRESSION: Negative for intracranial hemorrhage or mass effect
[2022-02-27] MEDS: sodium chloride 0.9% 1,000 ML 999 ML IV (22:44)
[2022-02-27] MEDS: ondansetron 2 mg/ML SDV 2 mL 4 MG IVP (22:44)
--- NOTE | 2022-02-27 22:44 | ECG_ITS ---
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 Measurements Intervals [place] Rate: 86 P: -18 [place]: 249 QRS: -37 QRSD: 141 T: 32 QT: 348 QTc: 417 Interpretive Statements SINUS RHYTHM LEFT AXIS DEVIATION [QRS AXIS < -30] RIGHT BUNDLE BRANCH BLOCK [120+ ms QRS DURATION, UPRIGHT V1, 40+ ms S IN I/aVL/V4/V5/V6] Compared to ECG 11/29/2021 04:22:35 Sinus rhythm no longer present First degree AV block no longer present Electronically Signed On 03-02-2022 17:55:34 CDT by James Henley M.D. [id number]
--- NOTE | 2022-02-27 22:45 | ED_ITS ---
HPI - Dizziness General: Chief Complaint: Dizziness Stated Complaint: WEAKNESS/DIZZY Time Seen by Provider: 02/27/22 22:06 Source: patient History of Present Illness: HPI Narrative: 76-year-old male complains of dizziness and generalized weakness. His notes that he has been working on a house in the heat with no air conditioning this week. He has been dizzy on and off for several weeks his dizziness became much worse around noon today. He was also generally weak. He started to get into the shower tonight, but could not hold himself up, so his laid him in the bathroom floor. He complains of intense nausea, with some dry heaving, and generalized weakness. No vision changes, no focal weakness or numbness, no la nguage problems MD elicited complaint: dizziness and lightheadedness Onset (ago): hour(s) Timing: gradual onset Severity: moderate Description: lightheadedness and difficulty walking History of similar symptoms: Yes Exacerbating factors: movement/ambulation Relieving factors: remaining still Associated symptoms: Reports vomiting; Denies chest pain, fevers/chills, headache(s) or short of breath Associated neuro symptoms: Reports extremity weakness (Diffuse); Deny confusion, difficulty speaking, dysphagia, diplopia, facial numbness, facial weakness, numbness in extremities or visual changes Stroke scale total: 0 Review of Systems Const: Denies: fever(s) Eyes: Denies: change in vision ENMT: Denies: throat pain Card: Denies: chest pain Resp: Denies: dyspnea GI: Reports: vomiting; Denies: dysphagia Neuro: Denies: headache(s), numbness in extremities or confusion [facility] ED PFSH: Medical History Hypothyroidism No pertinent past medical history Ulcerative colitis Surgical History H/O colectomy Social History Smoking and tobacco status: never smoked Physical Exam Const: COMMON NORMALS: patient oriented x3 GENERAL APPEARANCE: cooperative, ill appearing and frail appearing HENMT: COMMON NORMALS: normocephalic, atraumatic and Normal external nose present HEAD & SCALP: normocephalic and atraumatic FACE & SINUS: normal facial exam and face symmetric NOSE: Normal external nose present Eye: COMMON NORMALS: Equal, round and reactive pupils present and EOMs intact bilaterally PUPIL: Yes Equal, round and reactive pupils present Neck/C-Spine: GENERAL: Yes trachea midline Chest: CHEST: Yes Symmetrical chest wall rise Resp: COMMON NORMALS: normal respiratory effort, No use of accessory muscles and clear to auscultation bilaterally AUSCULTATION: clear to auscultation bilaterally Cardio: COMMON NORMALS: regular rate and regular rhythm RATE: regular rate RHYTHM: regular rhythm GI: COMMON NORMALS: Normal to inspection, nondistended, normoactive bowel sounds present and Soft to palpation PALPATION: Yes Soft to palpation Extremity: COMMON NORMALS: no pedal edema Neuro: JUDITH COMA SCALE: document GCS findings [place] coma scale eye opening: Spontaneous [place] coma scale verbal response: Orientated Judith coma scale motor response: Obey commands [place] coma scale total score: 15 COMMON NORMALS: patient oriented x3 CRANIAL NERVES: Yes CN normal except as noted and Yes vestibular testing Vestibular testing: Yes Nystagmus not present COORDINATION/BALANCE: [id number] test normal SPEECH: speech normal SENSORY EXAM: Yes extremities (Intact) and Trunk sensory exam abnormal (Intact) MOTOR EXAM: Pronator motor function not present and Motor fasciculations not present COORDINATION: [id number] test normal Psych: COMMON NORMALS: mental status grossly normal and cooperative Course Vital Signs: Vital signs: Vital Signs Temperature 98 F 02/28/22 16:00 Pulse Rate 70 02/28/22 16:00 Respiratory Rate 16 02/28/22 16:00 Blood Pressure 89/54 02/28/22 16:00 Pulse Oximetry 98 02/28/22 16:00 [facility] - Dizziness Medical Decision Making This patient is generally very weak. He is nauseated. He is improved after antiemetics and fluids to some degree. However, his magnesium is 0.4 which is perhaps the lowest have seen. He is given 2 g of magnesium IV here, then 2 more. His CBC is essentially normal. BMP is otherwise okay. Chest x-ray shows no acute findings. Head CT is negative for acute findings as well. He is still too weak to stand. He will be admitted for rehydration, and to recheck electrolytes. On the monitor, he is in sinus rhythm to bradycardia with very frequent PVCs. Bigeminy at times. Lab Data : 02/27/22 22:36 02/28/22 08:32 Radiology Impressions Chest X-Ray 02/27/22 22:43 IMPRESSION: No acute findings. Head CT 02/27/22 22:43 IMPRESSION: Negative for intracranial hemorrhage or mass effect Laboratory Results WBC 6.5 10^3/uL (4.0-10.0) 02/27/22 22:36 RBC 3.78 10^6/uL (4.1-5.3) L 02/27/22 22:36 Hgb 12.1 g/dL (11.7-16.6) 02/27/22 22:36 Hct 35.6 % (42.0-52.0) L 02/27/22 22:36 MCV 94.2 fl (80-94) H 02/27/22 22:36 MCH 32.0 pg (28.0-34.0) 02/27/22 22:36 MCHC 34.0 g/dL (30.0-36.0) 02/27/22 22:36 RDW 14.2 % (12.1-15.1) 02/27/22 22:36 Plt Count 159 10^3/cmm (130-400) 02/27/22 22:36 MPV 10.6 fL (7.4-10.4) H 02/27/22 22:36 Neut % (Auto) 77.0 % 02/27/22 22:36 Lymph % (Auto) 15.5 % 02/27/22 22:36 [place] % (Auto) 6.3 % 02/27/22 22:36 Eos % (Auto) 0.5 % 02/27/22 22:36 Baso % (Auto) 0.2 % 02/27/22 22:36 Neut # (Auto) 5.01 10^3/uL (1.8-7.7) 02/27/22 22:36 Lymph # (Auto) 1.0 10^3/uL (0.8-4.8) 02/27/22 22:36 [place] # (Auto) 0.4 10^3/uL (0.2-0.9) 02/27/22 22:36 Eos # (Auto) 0.0 10^3/uL (0.0-0.8) 07/15/22 22:36 Baso # (Auto) 0.0 10^3/uL (0.0-0.1) 02/27/22 22:36 Nucleated RBC % (auto) 0 % 02/27/22 22:36 Nucleated RBCs # 0.0 /100WBC 02/27/22 22:36 Sodium 137 mmol/L (136-145) 02/27/22 22:36 Potassium 4.3 mmol/L (3.5-5.1) 02/27/22 22:36 Chloride 105 mmol/L (98-107) 02/27/22 22:36 Carbon Dioxide 17 mmol/L (22-29) L 02/27/22 22:36 Anion Gap 19.3 (5-19) H 02/27/22 22:36 BUN 29 mg/dL (8-23) H 02/27/22 22:36 Creatinine 1.3 mg/dL (0.7-1.2) H 02/27/22 22:36 GFR Calculation Not Reportable 02/27/22 22:36 Glucose 109 mg/dL (65-115) 02/27/22 22:36 Calculated Osmolality 290 mOsm/kg (285-295) 02/27/22 22:36 Lactate 0.7 mmol/L (0.5-2.2) 02/27/22 22:36 Calcium 9.0 mg/dL (8.5-10.5) 02/27/22 22:36 Magnesium 0.4 mg/dL (1.7-2.3) L* 02/27/22 22:36 Total Bilirubin 0.4 mg/dL (0.15-1.2) 02/27/22 22:36 AST 12 U/L (0-40) 02/27/22 22:36 ALT 8 U/L (0-41) 02/27/22 22:36 Alkaline Phosphatase 42 IU/L (40-130) 02/27/22 22:36 Creatine Kinase 120 U/L (39-308) 02/27/22 22:36 Troponin T Baseline 26 ng/L (0-15) H 02/27/22 22:36 Troponin T 120 Minute 23.17 ng/L (0-15) H 02/28/22 00:45 Delta Troponin T -2.83 ABS# (0-10) L 02/28/22 00:45 C-Reactive Protein 3.0 mg/L (0.0-4.9) 02/27/22 22:36 Total Protein 6.9 g/dL (6.6-8.7) 02/27/22 22:36 Albumin 4.0 g/dL (3.5-5.2) 02/27/22 22:36 Globulin 2.9 g/dL (1.3-4.6) 02/27/22 22:36 Urine Color Yellow (Yellow) 02/28/22 00:43 Urine Appearance Clear (CLEAR) 02/28/22 00:43 Urine pH 5 (5-7) 02/28/22 00:43 Ur Specific [place] 1.020 (1.005-1.030) 02/28/22 00:43 Urine Protein Neg (Negative) 02/28/22 00:43 Urine Glucose (UA) Norm (Normal) 02/28/22 00:43 Urine Ketones Negative (Negative) 02/28/22 00:43 Urine Blood Neg (Negative) 02/28/22 00:43 Urine Nitrate Negative (Negative) 02/28/22 00:43 Urine Bilirubin Neg (Negative) 02/28/22 00:43 Urine Urobilinogen Norm mg/dL (Negative) 02/28/22 00:43 Ur Leukocyte Esterase Negative (Negative) 02/28/22 00:43 Discharge Plan Discharge Patient Disposition: Admitted As Inpatient Admit Provider: Julissa Darby Clinical Impression: Hypomagnesemia, Acute kidney injury, Dehydration Condition: Stable Coding Level of Care Code ED Psych Specialist for Virgilio Montano
[2022-02-27 23:10] LABS: Basophils % 0.2 %; Eosinophils % 0.5 %; Hematocrit 35.6 % (42.0-52.0); Hemoglobin 12.1 g/dL (11.7-16.6); Lymphocytes % 15.5 %; Mean Corpuscular Volume 94.2 fl (80-94); Mean Platelet Volume 10.6 fL (7.4-10.4); Monocytes # 0.4 10^3/uL (0.2-0.9); Monocytes % 6.3 %; Neutrophils # 5.01 10^3/uL (1.8-7.7); Nucleated Red Blood Cells % 0 %; Platelet Count 159 10^3/cmm (130-400); Red Blood Count 3.78 10^6/uL (4.1-5.3); Red Cell Distribution Width 14.2 % (12.1-15.1); White Blood Count 6.5 10^3/uL (4.0-10.0)
[2022-02-27] MEDS: midazolam 1 mg/mL INJ 2 mL 0.5 MG IVP (23:18)
[2022-02-27 23:22] LABS: Alanine Aminotransferase 8 U/L (0-41); Alkaline Phosphatase 42 IU/L (40-130); Anion Gap 19.3 (5-19); Aspartate Amino Transferase 12 U/L (0-40); Blood Urea Nitrogen 29 mg/dL (8-23); Carbon Dioxide 17 mmol/L (22-29); Chloride 105 mmol/L (98-107); Creatine Phosphokinase 120 U/L (39-308); Globulin 2.9 g/dL (1.3-4.6); Glucose 109 mg/dL (65-115); Osmolality Calculated 290 mOsm/kg (285-295); Potassium 4.3 mmol/L (3.5-5.1); Sodium 137 mmol/L (136-145); Total Bilirubin 0.4 mg/dL (0.15-1.2); Total Protein 6.9 g/dL (6.6-8.7); Troponin(5th) Baseline 26 ng/L (0-15)
[2022-02-27 23:24] LABS: Lactate (Lactic Acid level) 0.7 mmol/L (0.5-2.2)
[2022-02-27 23:27] LABS: Magnesium 0.4 mg/dL (1.7-2.3)
[2022-02-27] MEDS: magnesium sulfate premix 2 GM/50 ML PIGGYBACK IV (23:37)
[2022-02-28] VITALS (9 sets, daily range): BP systolic 82–104; BP diastolic 44–70; PULSE 59–90; RESP 16–17; TEMP 36.5–37.1; O2SAT 92–98
--- NOTE | 2022-02-28 00:44 | ECG_ITS ---
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 Measurements Intervals [place] Rate: 73 P: 55 [place]: 287 QRS: -38 QRSD: 146 T: 33 QT: 365 QTc: 403 Interpretive Statements SINUS RHYTHM WITH FIRST DEGREE AV BLOCK LEFT AXIS DEVIATION [QRS AXIS < -30] RIGHT BUNDLE BRANCH BLOCK [120+ ms QRS DURATION, UPRIGHT V1, 40+ ms S IN I/aVL/V4/V5/V6] Compared to ECG 02/27/2022 22:51:00 First degree AV block now present Electronically Signed On 03-02-2022 18:19:05 CDT by aJmes Henley M.D. [id number]
[2022-02-28 00:51] LABS: Add Urine Microscopic? NO; Charge for UA Resulting for Rev
[2022-02-28 01:08] LABS: Bilirubin Urine Neg (Negative); Blood Urine Neg (Negative); Glucose Urine UA Norm (Normal); Ketones Urine Negative (Negative); Leukocyte Esterase Urine Negative (Negative); Nitrate Urine Negative (Negative); Protein Urine Neg (Negative); Urine Appearance Clear (CLEAR); Urine Color Yellow (Yellow); Urobilinogen Urine Norm (Negative); pH Urine 5 (5-7)
[2022-02-28 01:16] LABS: Troponin 5 2HR 23.17 ng/L (0-15)
[2022-02-28 01:17] LABS: Troponin 5 2HR Delta -2.83 ABS# (0-10)
[2022-02-28] MEDS: magnesium sulfate premix 2 GM/50 ML PIGGYBACK IV (01:38)
--- NOTE | 2022-02-28 04:44 | ECG_ITS ---
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 Measurements Intervals [place] Rate: 68 P: 48 MS: 313 QRS: -35 QRSD: 144 T: 30 QT: 369 QTc: 395 Interpretive Statements SINUS RHYTHM WITH FIRST DEGREE AV BLOCK LEFT AXIS DEVIATION [QRS AXIS < -30] RIGHT BUNDLE BRANCH BLOCK [120+ ms QRS DURATION, UPRIGHT V1, 40+ ms S IN I/aVL/V4/V5/V6] Compared to ECG 02/28/2022 00:43:25 No significant changes Electronically Signed On 03-02-2022 18:17:32 CDT by James Henley M.D. [id number]
[2022-02-28 05:00] LABS: Troponin 5 6HR 32.21 ng/L (0-15)
[2022-02-28 05:10] LABS: Troponin 5 6HR Delta 6.21 ng/L (0-12)
--- NOTE | 2022-02-28 05:29 | PM.HP ---
Providers/Chief Complaint Admitting Physician: Julissa Darby MD Chief Complaint: WEAKNESS/DIZZY History of Present Illness Vern Calix is a 76 year old male with history of ulcerative colitis status post total colectomy and partial SBO presents the emergency room today with chief complaints of generalized weakness. He had reportedly been working on some repairs in the house which had no heat or air conditioning through this week. His dizziness was at the point where he felt off balance could not hold himself up and had to lay on the floor. Denies any chest pain dyspnea palpitations or syncope. Denies any fever chills nausea vomiting or diarrhea. In the ER blood pressure was noted to be 90/44, hypomagnesemia of 0.4. EKG showed sinus rhythm with first-degree AV block. QTc interval of 395. Review of Systems General: Reports: 10 or more systems reviewed and unremarkable except in HPI and below Const: Denies: fever(s), chills or body aches Eyes: Denies: change in vision, blurry vision or photophobia ENMT: Reports: hoarseness; Denies: throat pain, enlarged tonsils, odynophagia or nasal congestion Card: Denies: chest pain, palpitations, irregular heart rhythm, edema, swelling of feet/ankles, lightheadedness, pre-syncope, dyspnea on exertion or orthopnea Resp: Denies: dyspnea, productive cough, non-productive cough, wheezing, stridor, pain on inspiration, change in phlegm color, hemoptysis or chest congestion GI: Denies: abdominal pain, nausea, vomiting, hematemesis, coffee ground emesis, dysphagia, heartburn, diarrhea, constipation, GI cramping, change in stool character, hematochezia or melena : Denies: flank pain, dysuria, urinary frequency, urinary urgency, urinary hesitancy or hematuria Musc: Denies: neck pain, back pain, extremity pain, joint swelling, joint warmth or deformity Neuro: Denies: headache(s), numbness in extremities, weakness in extremities, sensory changes, difficulty walking, frequent falls, dizziness, vertigo, behavioral changes, Slurred speech present or seizure-like activity Psych: Denies: anxiety, depression, suicidal ideation or homicidal ideation Endo: Denies: polyuria, polydipsia, tired all the time, cold intolerance or hot flashes Miguel/Lymph: Denies: easy bruising or easy bleeding Medications/Allergies Home Medications Medication Instructions Recorded Confirmed Last Taken Type allopurinol 300 mg tablet 300 mg PO DAILY 11/29/21 02/28/22 02/26/22 History cholecalciferol (vitamin D3) 50 50 mcg PO DAILY 11/29/21 02/28/22 02/26/22 History mcg (2,000 unit) tablet cyanocobalamin (vitamin B-12) 1,000 mcg IM Q7D 11/29/21 02/28/22 02/19/22 History 1,000 mcg/mL injection kit gabapentin 100 mg capsule 300 mg PO BEDTIME 11/29/21 02/28/22 02/26/22 History garlic 1,000 mg capsule 1,000 mg PO DAILY 11/29/21 02/28/22 02/26/22 History levothyroxine 25 mcg tablet 25 mcg PO DAILY 11/29/21 02/28/22 02/26/22 History multivitamin 1 tab PO DAILY 11/29/21 02/28/22 02/26/22 History omega 1-ore-hct-fish oil 1,000 mg 1 cap PO DAILY 11/29/21 02/28/22 02/26/22 History (120 mg-180 mg) capsule (Fish Oil) omeprazole 20 mg capsule,delayed 20 mg PO BEDTIME 11/29/21 02/28/22 02/26/22 History release tamsulosin 0.4 mg capsule 0.4 mg PO DAILY 11/29/21 02/28/22 02/26/22 History testosterone 1.62 % (20.25 mg/1.25 40.5 mg TOPICAL DAILY 11/29/21 02/28/22 02/26/22 History gram) transdermal gel packet Allergies Allergy/AdvReac Type Severity Reaction Status Date / Time codeine Allergy ADR-Halluci Verified 02/17/22 12:54 gina morphine Allergy ADR-Halluci Verified 02/17/22 12:54 gina PFSH Acute PFSH: Medical History Hypothyroidism No pertinent past medical history Ulcerative colitis Surgical History H/O colectomy Social History Smoking and tobacco status: never smoked Vitals/I&O/Wt Last Vital Signs Temp 97.1 F L 02/27/22 22:03 Pulse 90 02/28/22 02:03 Resp 17 02/28/22 02:03 BP 91/44 02/28/22 02:03 Pulse Ox 95 02/28/22 02:03 02/27/22 02/27/22 02/28/22 14:59 22:59 06:59 Intake Total 1100 / 1100 Balance 1100 / 1100 Weight last 48 hrs Weight 75.296 kg Physical Exam Narrative: GEN: Awake, alert and oriented, no acute distress CVS: S1S2 N RS: CTA B/L Abd: Soft, nt/nd , bs+ 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 Head CT 02/27/22 22:43 IMPRESSION: Negative for intracranial hemorrhage or mass effect Laboratory Results WBC 6.5 10^3/uL (4.0-10.0) 02/27/22 22:36 RBC 3.78 10^6/uL (4.1-5.3) L 02/27/22 22:36 Hgb 12.1 g/dL (11.7-16.6) 02/27/22 22:36 Hct 35.6 % (42.0-52.0) L 02/27/22 22:36 MCV 94.2 fl (80-94) H 02/27/22 22:36 MCH 32.0 pg (28.0-34.0) 02/27/22 22:36 MCHC 34.0 g/dL (30.0-36.0) 02/27/22 22:36 RDW 14.2 % (12.1-15.1) 02/27/22 22:36 Plt Count 159 10^3/cmm (130-400) 02/27/22 22:36 MPV 10.6 fL (7.4-10.4) H 02/27/22 22:36 Neut % (Auto) 77.0 % 02/27/22 22:36 Lymph % (Auto) 15.5 % 02/27/22 22:36 [place] % (Auto) 6.3 % 02/27/22 22:36 Eos % (Auto) 0.5 % 02/27/22 22:36 Baso % (Auto) 0.2 % 02/27/22 22:36 Neut # (Auto) 5.01 10^3/uL (1.8-7.7) 02/27/22 22:36 Lymph # (Auto) 1.0 10^3/uL (0.8-4.8) 02/27/22 22:36 [place] # (Auto) 0.4 10^3/uL (0.2-0.9) 02/27/22 22:36 Eos # (Auto) 0.0 10^3/uL (0.0-0.8) 02/27/22 22:36 Baso # (Auto) 0.0 10^3/uL (0.0-0.1) 02/27/22 22:36 Nucleated RBC % (auto) 0 % 02/27/22 22:36 Nucleated RBCs # 0.0 /100WBC 02/27/22 22:36 Sodium 137 mmol/L (136-145) 02/27/22 22:36 Potassium 4.3 mmol/L (3.5-5.1) 02/27/22 22:36 Chloride 105 mmol/L (98-107) 02/27/22 22:36 Carbon Dioxide 17 mmol/L (22-29) L 02/27/22 22:36 Anion Gap 19.3 (5-19) H 02/27/22 22:36 BUN 29 mg/dL (8-23) H 02/27/22 22:36 Creatinine 1.3 mg/dL (0.7-1.2) H 02/27/22 22:36 GFR Calculation Not Reportable 02/27/22 22:36 Glucose 109 mg/dL (65-115) 02/27/22 22:36 Calculated Osmolality 290 mOsm/kg (285-295) 02/27/22 22:36 Lactate 0.7 mmol/L (0.5-2.2) 02/27/22 22:36 Calcium 9.0 mg/dL (8.5-10.5) 02/27/22 22:36 Magnesium 0.4 mg/dL (1.7-2.3) L* 02/27/22 22:36 Total Bilirubin 0.4 mg/dL (0.15-1.2) 02/27/22 22:36 AST 12 U/L (0-40) 02/27/22 22:36 ALT 8 U/L (0-41) 02/27/22 22:36 Alkaline Phosphatase 42 IU/L (40-130) 02/27/22 22:36 Creatine Kinase 120 U/L (39-308) 02/27/22 22:36 Troponin T Baseline 26 ng/L (0-15) H 02/27/22 22:36 Troponin T 120 Minute 23.17 ng/L (0-15) H 02/28/22 00:45 Delta Troponin T -2.83 ABS# (0-10) L 02/28/22 00:45 Troponin T Hi Sens 6Hr 32.21 ng/L (0-15) H 02/28/22 04:25 Troponin T Hi Sens 6Hr Delta 6.21 ng/L (0-12) 02/28/22 04:25 C-Reactive Protein 3.0 mg/L (0.0-4.9) 02/27/22 22:36 Total Protein 6.9 g/dL (6.6-8.7) 02/27/22 22:36 Albumin 4.0 g/dL (3.5-5.2) 02/27/22 22:36 Globulin 2.9 g/dL (1.3-4.6) 02/27/22 22:36 Urine Color Yellow (Yellow) 02/28/22 00:43 Urine Appearance Clear (CLEAR) 02/28/22 00:43 Urine pH 5 (5-7) 02/28/22 00:43 Ur Specific [place] 1.020 (1.005-1.030) 02/28/22 00:43 Urine Protein Neg (Negative) 02/28/22 00:43 Urine Glucose (UA) Norm (Normal) 02/28/22 00:43 Urine Ketones Negative (Negative) 02/28/22 00:43 Urine Blood Neg (Negative) 02/28/22 00:43 Urine Nitrate Negative (Negative) 02/28/22 00:43 Urine Bilirubin Neg (Negative) 02/28/22 00:43 Urine Urobilinogen Norm mg/dL (Negative) 02/28/22 00:43 Ur Leukocyte Esterase Negative (Negative) 02/28/22 00:43 A&P Assessment and plan (1) Hypomagnesemia: Status: Acute (2) Dehydration: Status: Acute Plan 76-year-old male presenting today with dizziness and hypomagnesemia. I suspect that this may be related to dehydration given patient's history of having worked in hot humid conditions without any air conditioning. IV fluids normal saline at 75 cc an hour. Magnesium is being repleted currently with 2 g IV infusion ongoing. EKG shows sinus rhythm with first-degree AV block and frequent VPCs on telemetry Troponin series without significant delta at 2 and 6 hours. Echocardiogram taken in November of this year was within normal limits. Would not repeat at this time. Doubt ACS. EKG changes likely to be related to electrolyte abnormality. Trial of cinnarizine air replacement of electrolytes and rehydration failed to improve dizziness. Check orthostatics Attestations Medical Necessity Statement*: Anticipate less than 2 midnight stay for above defined care. 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
[2022-02-28] MEDS: sodium chloride 0.9% 1,000 ML 75 ML IV (06:35)
[2022-02-28] MEDS: tamsulosin 0.4 mg Capsule PO (08:11)
[2022-02-28] MEDS: allopurinol 300 mg Tablet PO (08:12)
[2022-02-28] MEDS: sodium chloride 0.9% 500 ML IV (08:12)
[2022-02-28] MEDS: levothyroxine 25 mcg Tablet PO (08:12)
--- NOTE | 2022-02-28 08:57 | PC.NURSE ---
Bedside report received from WILBUR [place].
[2022-02-28 09:04] LABS: Alanine Aminotransferase 8 U/L (0-41); Albumin Level 3.8 g/dL (3.5-5.2); Alkaline Phosphatase 43 IU/L (40-130); Anion Gap 13.9 (5-19); Aspartate Amino Transferase 11 U/L (0-40); Blood Urea Nitrogen 24 mg/dL (8-23); Calcium 8.5 mg/dL (8.5-10.5); Carbon Dioxide 21 mmol/L (22-29); Chloride 108 mmol/L (98-107); Globulin 2.3 g/dL (1.3-4.6); Glucose 95 mg/dL (65-115); Osmolality Calculated 292 mOsm/kg (285-295); Potassium 3.9 mmol/L (3.5-5.1); Sodium 139 mmol/L (136-145); Total Bilirubin 0.5 mg/dL (0.15-1.2); Total Protein 6.1 g/dL (6.6-8.7)
[2022-02-28 09:13] LABS: Magnesium 1.3 mg/dL (1.7-2.3)
[2022-02-28 19:56] LABS: Anion Gap 15.3 (5-19); Blood Urea Nitrogen 28 mg/dL (8-23); Calcium 8.3 mg/dL (8.5-10.5); Carbon Dioxide 21 mmol/L (22-29); Chloride 108 mmol/L (98-107); Glucose 128 mg/dL (65-115); Magnesium 1.3 mg/dL (1.7-2.3); Osmolality Calculated 297 mOsm/kg (285-295); Phosphorus 3.1 mg/dL (2.5-4.5); Potassium 4.3 mmol/L (3.5-5.1); Sodium 140 mmol/L (136-145)
[2022-02-28] MEDS: pantoprazole DR 40 mg Tablet PO (20:56)
[2022-02-28] MEDS: gabapentin 300 mg Capsule PO (20:56)
[2022-03-01] VITALS: BP 101/43; PULSE 59; RESP 17; TEMP 36.9; O2SAT 95
--- NOTE | 2022-03-01 00:44 | PM.MISC ---
Miscellaneous Note Note: Patient was seen and examined. History reviewed. Has had extensive bowel resection. Most of his colon and later his rectum was also removed. Portions of his small bowel additionally were taken. He says he has maybe 3 feet of bowel left. He has never been told that he had low magnesium levels. Does not have a history of typically taking magnesium supplementation of any kind. He has been on long-term PPI. Reports that he has been very weak off and on with intermittent dizziness for a while. Has been frustrated a bit by not having consistent provider. He often sees a different person when he goes to the [place]. He says he is not really improved since he was here in November. Interestingly review of prior records from both [facility] and [facility] do not show that he has ever had a magnesium level checked at our facility. Profound hypomagnesemia could account for the majority of his symptoms. He would have some difficulty absorbing magnesium from his gut that remains. TSH and Veda was normal. BUN and creatinine are improving. We will recheck laboratory studies in the morning. Orthostatics were checked today and patient was dizzy. He has received additional fluid boluses. Reviewed plans with patient and given an opportunity to ask questions.
[2022-03-01 04:00] VITALS: BP 100/62; PULSE 72; RESP 18; TEMP 36.6; O2SAT 94
[2022-03-01 05:58] LABS: Anion Gap 13.3 (5-19); Blood Urea Nitrogen 30 mg/dL (8-23); Calcium 8.3 mg/dL (8.5-10.5); Carbon Dioxide 18 mmol/L (22-29); Chloride 110 mmol/L (98-107); Glucose 103 mg/dL (65-115); Magnesium 1.1 mg/dL (1.7-2.3); Osmolality Calculated 290 mOsm/kg (285-295); Phosphorus 2.7 mg/dL (2.5-4.5); Potassium 4.3 mmol/L (3.5-5.1); Sodium 137 mmol/L (136-145)
[2022-03-01 07:38] VITALS: BP 105/41; PULSE 60; RESP 16; TEMP 36.8; O2SAT 95
[2022-03-01] MEDS: tamsulosin 0.4 mg Capsule PO (07:57)
[2022-03-01] MEDS: allopurinol 300 mg Tablet PO (07:57)
[2022-03-01] MEDS: levothyroxine 25 mcg Tablet PO (07:57)
[2022-03-01] MEDS: magnesium lactate 84 mg Tablet PO (07:59)
[2022-03-01] MEDS: magnesium sulfate premix 2 GM/50 ML PIGGYBACK IV (07:59)
[2022-03-01 12:00] VITALS: BP 94/54; PULSE 70; RESP 16; TEMP 36.6; O2SAT 95
[2022-03-01 13:10] LABS: Magnesium 0.9 mg/dL (1.7-2.3)
[2022-03-01] MEDS: magnesium sulfate premix 4 GM/100 ML PREMIX IV (13:33)
[2022-03-01] MEDS: sodium chloride 0.9% 1,000 ML 75 ML IV (13:36)
--- NOTE | 2022-03-01 13:39 | PM.DCS ---
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 (6) Chronic kidney disease: Status: Chronic Qualifiers: Chronic kidney disease stage: stage 3 (moderate) Chronic kidney disease stage 3 subtype: stage 3a (GFR 45-59) Qualified Code(s): N18.31 - Chronic kidney disease, stage 3a (7) Ulcerative colitis: Status: Chronic Qualifiers: Ulcerative colitis location: other ulcerative colitis Digestive disease complication type: other complication Qualified Code(s): K51.818 - Other ulcerative colitis with other complication Permanent problem details: With history of large bowel resection (8) Hypothyroidism: Status: Chronic Qualifiers: Hypothyroidism type: acquired Qualified Code(s): E03.9 - Hypothyroidism, unspecified Reason for Visit Reason for Visit: WEAKNESS/DIZZY Brief History: Vern Calix is a 76 year old male with history of ulcerative colitis status post total colectomy and partial SBO presents? the emergency room today with chief complaints of generalized weakness.? He had reportedly been working on some repairs in the house which had no heat or air conditioning through this week.? His dizziness was at the point where he felt off balance could not hold himself up and had to lay on the floor.? Denies any chest pain dyspnea palpitations or syncope.? Denies any fever chills nausea vomiting or diarrhea. In the ER blood pressure was noted to be 90/44, hypomagnesemia of 0.4.? EKG showed sinus rhythm with first-degree AV block.? QTc interval of 395. Hospital Course Hospital Course Patient was admitted to medical bed. He was given magnesium replacement and IV fluids. Received a total of 10 mg of IV magnesium. Magnesium level prior to last IV administration was 1. Oral magnesium in the form of magnesium lactate was initiated to help optimize absorption given his variant of short gut syndrome. He is also a chronic PPI user. Discussed this with him and he is agreeable to trying to stop omeprazole. I reviewed rebound reflux/indigestion symptoms and ways to manage it. I suspect that he has had some degree of hypomagnesemia for a while and with dehydration/overheating from efforts to move, he went beyond his threshold limit for tolerance. He was feeling better at the time of discharge though still with some dizziness with position changes. Instructed to be slow with position changes and have somebody else do the heavier work for the move right now. Prescription was provided for magnesium lactate and hopefully [facility] it. Instructed the patient that if not he could start with magnesium oxide I am just not sure how much of it he will absorb. I will note that patient has never had a magnesium level checked in the medical records I could identify here. TSH was checked and was normal. Potassium levels were normal. If he continues to have issues with magnesium after removing PPI and providing supplementation, further focused evaluation to include 24-hour urinary excretion of magnesium among others could be initiated. Discharge Data Studies Completed and Pending Completed Studies During Hospitalization Category Date Time Status CT head wo con* [id number] Urgent Cat Scan 02/27/22 22:43 Completed XR chest 1V portable [id number] Urgent Exams 02/27/22 22:43 Completed Radiology Impressions Chest X-Ray 02/27/22 22:43 IMPRESSION: No acute findings. Head CT 02/27/22 22:43 IMPRESSION: Negative for intracranial hemorrhage or mass effect Laboratory Results WBC 6.5 10^3/uL (4.0-10.0) 02/27/22 22:36 RBC 3.78 10^6/uL (4.1-5.3) L 02/27/22 22:36 Hgb 12.1 g/dL (11.7-16.6) 02/27/22 22:36 Hct 35.6 % (42.0-52.0) L 02/27/22 22:36 MCV 94.2 fl (80-94) H 02/27/22 22:36 MCH 32.0 pg (28.0-34.0) 02/27/22 22:36 MCHC 34.0 g/dL (30.0-36.0) 02/27/22 22:36 RDW 14.2 % (12.1-15.1) 02/27/22 22:36 Plt Count 159 10^3/cmm (130-400) 02/27/22 22:36 MPV 10.6 fL (7.4-10.4) H 02/27/22 22:36 Neut % (Auto) 77.0 % 02/27/22 22:36 Lymph % (Auto) 15.5 % 02/27/22 22:36 [place] % (Auto) 6.3 % 02/27/22 22:36 Eos % (Auto) 0.5 % 02/27/22 22:36 Baso % (Auto) 0.2 % 02/27/22 22:36 Neut # (Auto) 5.01 10^3/uL (1.8-7.7) 02/27/22 22:36 Lymph # (Auto) 1.0 10^3/uL (0.8-4.8) 02/27/22 22:36 [place] # (Auto) 0.4 10^3/uL (0.2-0.9) 02/27/22 22:36 Eos # (Auto) 0.0 10^3/uL (0.0-0.8) 02/27/22 22:36 Baso # (Auto) 0.0 10^3/uL (0.0-0.1) 02/27/22 22:36 Nucleated RBC % (auto) 0 % 02/27/22 22:36 Nucleated RBCs # 0.0 /100WBC 02/27/22 22:36 Sodium 137 mmol/L (136-145) 03/01/22 04:43 Potassium 4.3 mmol/L (3.5-5.1) 03/01/22 04:43 Chloride 110 mmol/L (98-107) H 03/01/22 04:43 Carbon Dioxide 18 mmol/L (22-29) L 03/01/22 04:43 Anion Gap 13.3 (5-19) 03/01/22 04:43 BUN 30 mg/dL (8-23) H 03/01/22 04:43 Creatinine 1.3 mg/dL (0.7-1.2) H 03/01/22 04:43 GFR Calculation Not Reportable 03/01/22 04:43 Glucose 103 mg/dL (65-115) 03/01/22 04:43 Calculated Osmolality 290 mOsm/kg (285-295) 03/01/22 04:43 Lactate 0.7 mmol/L (0.5-2.2) 02/27/22 22:36 Calcium 8.3 mg/dL (8.5-10.5) L 03/01/22 04:43 Phosphorus 2.7 mg/dL (2.5-4.5) 03/01/22 04:43 Magnesium 0.9 mg/dL (1.7-2.3) L 03/01/22 11:40 Total Bilirubin 0.5 mg/dL (0.15-1.2) 02/28/22 08:32 AST 11 U/L (0-40) 02/28/22 08:32 ALT 8 U/L (0-41) 02/28/22 08:32 Alkaline Phosphatase 43 IU/L (40-130) 02/28/22 08:32 Creatine Kinase 120 U/L (39-308) 02/27/22 22:36 Troponin T Baseline 26 ng/L (0-15) H 02/27/22 22:36 Troponin T 120 Minute 23.17 ng/L (0-15) H 02/28/22 00:45 Delta Troponin T -2.83 ABS# (0-10) L 02/28/22 00:45 Troponin T Hi Sens 6Hr 32.21 ng/L (0-15) H 02/28/22 04:25 Troponin T Hi Sens 6Hr Delta 6.21 ng/L (0-12) 02/28/22 04:25 C-Reactive Protein 3.0 mg/L (0.0-4.9) 02/27/22 22:36 Total Protein 6.1 g/dL (6.6-8.7) L 02/28/22 08:32 Albumin 3.8 g/dL (3.5-5.2) 02/28/22 08:32 Globulin 2.3 g/dL (1.3-4.6) 02/28/22 08:32 TSH 3.00 uIU/mL (0.27-4.20) 03/01/22 04:43 Urine Color Yellow (Yellow) 02/28/22 00:43 Urine Appearance Clear (CLEAR) 02/28/22 00:43 Urine pH 5 (5-7) 02/28/22 00:43 Ur Specific [employer] 1.020 (1.005-1.030) 02/28/22 00:43 Urine Protein Neg (Negative) 02/28/22 00:43 Urine Glucose (UA) Norm (Normal) 02/28/22 00:43 Urine Ketones Negative (Negative) 02/28/22 00:43 Urine Blood Neg (Negative) 02/28/22 00:43 Urine Nitrate Negative (Negative) 02/28/22 00:43 Urine Bilirubin Neg (Negative) 02/28/22 00:43 Urine Urobilinogen Norm mg/dL (Negative) 02/28/22 00:43 Ur Leukocyte Esterase Negative (Negative) 02/28/22 00:43 MAGNESIUM LEVELS: 02/27/22 02/28/22 02/28/22 22:36 08:32 19:05 Magnesium 0.4 L* 1.3 L 1.3 L 03/01/22 03/01/22 04:43 11:40 Magnesium 1.1 L 0.9 L Vitals Last Vital Signs Temp 97.9 F 03/01/22 12:00 Pulse 70 03/01/22 12:00 Resp 16 03/01/22 12:00 BP 94/54 03/01/22 12:00 Pulse Ox 95 03/01/22 12:00 Discharge Plan Discharge Patient Disposition: Home Condition: Stable Prescriptions: New magnesium L-lactate 84 mg tablet extended release 84 mg PO DIRECTED Qty: 60 0RF Rx Instructions: Take 1 tab 3 times per day for 1 week then twice per day there after famotidine [Pepcid] 20 mg tablet 20 mg PO BID Qty: 60 0RF Continued multivitamin Tablet 1 tab PO DAILY 0RF levothyroxine 25 mcg Tablet 25 mcg PO DAILY 0RF garlic 1,000 mg Capsule 1,000 mg PO DAILY 0RF tamsulosin 0.4 mg Capsule 0.4 mg PO DAILY 0RF allopurinol 300 mg Tablet 300 mg PO DAILY 0RF gabapentin 100 mg Capsule 300 mg PO BEDTIME 0RF cholecalciferol (vitamin D3) 50 mcg (2,000 unit) Tablet 50 mcg PO DAILY 0RF omega 2-qfv-ati-fish oil [Fish Oil] 1,000 mg (120 mg-180 mg) Capsule 1 cap PO DAILY 0RF testosterone 1.62 % (20.25 mg/1.25 gram) Gel In Packet 40.5 mg topical DAILY 0RF cyanocobalamin (vitamin B-12) 1,000 mcg/mL Kit 1,000 mcg IM Q7D 0RF Discontinued omeprazole 20 mg Capsule,Delayed Release(Dr/Ec) 20 mg PO BEDTIME 0RF Discharge Orders: Discharge Order (Routine); Ordered 03/01/22 Ordered By: Amelia Gibbons Other Ambulatory Orders: Basic Metabolic Panel (Routine) Timeframe: 1 Week Location: Determined by Patient Ordered By: Amelia Gibbons Magnesium (Routine) Timeframe: 1 Week Location: Determined by Patient Ordered By: Amelia Gibbons Referrals: 's Affairs, Primary Care Provider [Other] - 1 week (With lab work) Discharge Diet: Advance as tolerated Discharge Activity: Increase activity as tolerated Patient Instructions: Opioid Safety Activity Restrictions/Additional Instructions: You presented with severe weakness and dizziness. In the emergency room you were noted to have a magnesium level of 0.4. Initial blood pressures were 90s over 40s. Twelve-lead EKG showed sinus rhythm with a first-degree AV block, QTc of 395. Your other electrolytes such as sodium, potassium and chloride were normal. Your kidney function similar to prior available comparative labs here from November of this year with BUN and creatinine at 29/1.3. You were immediately given magnesium replacement and subsequently admitted to the hospital for observation. In addition to the magnesium replacement you were given some IV fluids. TSH was checked and was normal at 3.0. You did have serial cardiac enzymes completed. You have a baseline slightly elevated troponin at 26 but over the course of 6 hours there was not significant change appreciated. You required several doses of IV magnesium to get your magnesium level above 1. In addition to IV magnesium you were given some oral magnesium. I suspect that due to the various bowel resections that you have had including large bowel, rectum and a portion of the small bowel contributes to lower absorption magnesium for you. Additionally long-term use of omeprazole or other similar proton pump inhibitors (a fancy name for specific type of stomach medication) can deplete magnesium over time. My recommendation was to initiate scheduled magnesium replacement, stop your omeprazole and recheck how you are doing on magnesium level in an outpatient setting. I have written for a prescription of magnesium lactate due to potential ease of absorption compared to some other formulations. Should you be unable to obtain this, an alternative is magnesium oxide which you could take 400 mg twice a day instead. Coming off of a proton pump inhibitor such as omeprazole can lead to rebound (worsening) reflux symptoms and indigestion. I have written a prescription for Pepcid to help with this over the next month or so. Additionally you can take [id number] heartburn medications such as Tums and the like as needed should you experience it. Consider sleeping with your head elevated to help with reflux symptoms should they develop. They can be more prominent at night or in a supine position on your back. As you relocate to a new area, try to identify healthcare provider location where you can easily get blood work done in a timely fashion as well as potentially have access to infusion area where outpatient magnesium could be given in the event that you have recurrent episodes like this. While your acute worsening was likely due to overexertion, you describe symptoms of probable hypomagnesia over at least the last few months. Should you have recurrent acute dizziness and inability to stand similar to what you experienced this time, rather acutely concerning symptoms, medical care immediately and let them know you should have a magnesium level checked as part of your work-up. A normal magnesium level is typically around 1.8-2.4. Your level of 0.4 was very low. Discharge Attestations Time Spent in Discharge Care*: greater than 30 min Specific Discharge Activities: educating patient, documenting/other paperwork and evaluating patient/reviewing data Quality Metrics Clinical Quality Measures [ No reported AMI, CVA or VTE this stay] Coding Level of Care Code Acute Chg FW DC note Diagnoses Hypomagnesemia E83.42 Dehydration E86[address] Z93.3 Weakness generalized R53.1 Dizziness R42 Chronic kidney disease N18.31 Chronic kidney disease stage: stage 3 (moderate) Chronic kidney disease stage 3 subtype: stage 3a (GFR 45-59) Hypothyroidism E03.9 Hypothyroidism type: acquired Ulcerative colitis K51.818 Ulcerative colitis location: other ulcerative colitis Digestive disease complication type: other complication
--- NOTE | 2022-03-01 15:05 | PC.NURSE ---
2g magnesium was not ran this morning due to secondary tubing being clamped and discovered in afternoon. Return magnesium trending down to 0.9 and additional 4g magnesium was ordered.
[2022-03-01 15:42] VITALS: BP 108/64; PULSE 73; RESP 16; TEMP 36.9; O2SAT 95
== END 2022-03-01 17:14 | disposition home or self-care (01) ==
LOC: ER 02-28 01:32 → MEDSURG 02-28 01:57
PROVIDERS: Admitting Provider Student in an Organized Health Care Education/Training Program; Emergency Provider Emergency Medicine; Visit Provider Hospitalist
DX: E83.42 Hypomagnesemia (principal); E86.0 Dehydration; Z93.3 Colostomy status; R53.1 Weakness; R42 Dizziness and giddiness; E03.9 Hypothyroidism, unspecified; K51.818 Other ulcerative colitis with other complication; N18.31 Chronic kidney disease, stage 3a; I45.10 Unspecified right bundle-branch block
CPT/HCPCS: 36415; 70450; 71045; 80048; 80053; 81003; 82550; 83605; 83735; 84100; 84443; 84484; 85025; 86140; 93005; 96365; 96366; 99285; G0378; J2250; J2405; J3475; J7030; J7040

== ENCOUNTER → 2023-02-11 11:36 | Outpatient (BNVA) | payer OTHER, SELFPAY | PROVIDERS: Visit Provider Dermatology | DX: D48.5 Neoplasm of uncertain behavior of skin (principal); L57.0 Actinic keratosis; L57.8 Other skin changes due to chronic exposure to nonionizing radiation; Z85.828 Personal history of other malignant neoplasm of skin | CPT/HCPCS: 17000; 17003; 99213 ==

== ENCOUNTER → 2024-08-31 09:42 | Outpatient (BNVA) | payer OTHER, SELFPAY | PROVIDERS: Visit Provider Nurse Practitioner Family | DX: D48.5 Neoplasm of uncertain behavior of skin (principal); L57.8 Other skin changes due to chronic exposure to nonionizing radiation; L82.1 Other seborrheic keratosis; I78.8 Other diseases of capillaries; L81.4 Other melanin hyperpigmentation; Z08 Encounter for follow-up examination after completed treatment for malignant neoplasm; Z85.828 Personal history of other malignant neoplasm of skin; L57.0 Actinic keratosis | CPT/HCPCS: 17000; 99213 ==